=== PATIENT | female | born 1995 | race Caucasian/White ===

== ENCOUNTER 2020-04-10 15:29 | Emergency (ER) | payer OTHER, SELFPAY ==
[~2020-04-10] VITALS: Ht 165.1 cm; Wt 68.0 kg
[2020-04-10 15:56] VITALS: BP 130/74
--- NOTE | 2020-04-10 15:59 | NUR ---
REMAINS IN THE TENT FOR MD ANGELES
--- NOTE | 2020-04-10 16:02 | NUR ---
25/F c/o fever, body aches, fatigue, and headache x 2 days. Patient states "I'm here to get tested." Pt afebrile upon arrival. Pt AOX4. No signs of respiratory distress. VSS.
--- NOTE | 2020-04-10 16:21 | NUR ---
COVID-19 SWAB COLLECTED
[2020-04-10 16:26] VITALS: BP 114/68
--- NOTE | 2020-04-13 07:29 | NUR ---
late entry-- received a positive covid swab. given to infection control.
== END 2020-04-10 16:27 | disposition home or self-care (01) ==
LOC: MED 15:29 → EEVIPCON 15:29 → MED 16:27
DX: U07.1 COVID-19 (principal); Z88.0 Allergy status to penicillin
CPT/HCPCS: 99283; U0003